=== PATIENT | female | born 1980 | race Caucasian/White ===

== ENCOUNTER 2019-06-06 19:36 | Emergency (ER) | payer MEDICARE ==
[~2019-06-06] VITALS: Ht 172.7 cm; Wt 99.3 kg
[2019-06-06 19:37] VITALS: BP 162/100
[2019-06-06] MEDS ORDERED: KETOROLAC 30 MG/1 ML IM ONE (20:00)
[2019-06-06] MEDS ORDERED: KETOROLAC 30 MG/1 ML ONE (20:20)
--- NOTE | 2019-06-06 20:36 | NUR ---
PT HERE FOR RIGHT SIDED CHEST PAIN THAT IS REPORDUCEABLE WITH PALPATION. PT REPORTS SHE IS SOB WITGH EXCERTION. PT REPORTS NO CARDIAC HX. PT CONNECTED TO MONITORS AND CALL LIGHT IN REACH. VSS.
[2019-06-06 20:39] LABS: BASOPHILS # (AUTO) 0.03 x10^3/uL (0-0.1); BASOPHILS % (AUTO) 0 % (0-1); EOSINOPHILS % (AUTO) 0 % (1-7); LYMPHOCYTES # (AUTO) 0.82 x10^3/uL (1-3.4); LYMPHOCYTES % (AUTO) 10 % (22-44); MD NO; MEAN CORPUSCULAR HEMOGLOBIN 33.8 pg (27.0-34.8); MEAN CORPUSCULAR HGB CONC 33.5 g/dL (32.4-35.8); MEAN CORPUSCULAR VOLUME 100.8 fL (80-100); MEAN PLATELET VOLUME 7.7 fL (7.4-10.4); MONOCYTES # (AUTO) 0.48 x10^3/uL (0.2-0.8); MONOCYTES % (AUTO) 6 % (2-9); NEUTROPHILS % (AUTO) 83 % (42-75); PLATELET COUNT 222 x10^3/uL (130-400); RED BLOOD COUNT 4.29 x10^6/uL (3.82-5.3); RED CELL DISTRIBUTION WIDTH 14.6 % (9.6-15.2)
[2019-06-06 20:49] LABS: ALANINE AMINOTRANSFERASE 73 U/L (12-78); ALBUMIN 3.5 g/dL (3.4-5.0); ANION GAP 9 mmol/L (5-15); CALCIUM 8.4 mg/dL (8.5-10.1); CHLORIDE 105 mmol/L (98-107); CREATININE 0.93 mg/dL (0.55-1.02)
[2019-06-06 20:53] LABS: ALKALINE PHOSPHATASE 126 U/L (45-117); BILIRUBIN,TOTAL 0.6 mg/dL (0.2-1.0); TOTAL PROTEIN 7.6 g/dL (6.4-8.2); TROPONIN I < 0.015 ng/mL (0.000-0.045)
--- NOTE | 2019-06-06 21:39 | NUR ---
Patient/Caregiver given discharge instructions and they have confirmed that they understand the instructions. Patient ambulatory with steady gait.
--- NOTE | 2019-06-06 21:40 | NUR ---
ABD US CANCELLED
== END 2019-06-06 22:04 | disposition home or self-care (01) ==
LOC: ED 21:45
DX: R07.81 Pleurodynia (principal); R94.5 Abnormal results of liver function studies; R07.89 Other chest pain; M06.9 Rheumatoid arthritis, unspecified
CPT/HCPCS: 36415; 71045; 80053; 84484; 85025; 85379; 93005; 96372; 99284; J1885

== ENCOUNTER 2020-01-20 13:38 | Emergency (ER) | payer OTHER, MEDICARE ==
[~2020-01-20] VITALS: Ht 172.7 cm; Wt 101.0 kg
--- NOTE | 2020-01-20 13:57 | NUR ---
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
[2020-01-20] MEDS ORDERED: SODIUM CHLORIDE FLUSH 10ML SYR IVF ONE (14:00)
[2020-01-20] MEDS ORDERED: SODIUM CHLORIDE 0.9% 1,000ML IVBOLUS ONE (14:30)
[2020-01-20 14:52] LABS: BASOPHILS # (AUTO) 0.03 x10^3/uL (0-0.1); BASOPHILS % (AUTO) 0 % (0-1); EOSINOPHILS # (AUTO) 0.01 x10^3/uL (0-0.4); EOSINOPHILS % (AUTO) 0 % (1-7); LYMPHOCYTES # (AUTO) 0.81 x10^3/uL (1-3.4); LYMPHOCYTES % (AUTO) 13 % (22-44); MD NO; MEAN CORPUSCULAR HEMOGLOBIN 33.6 pg (27.0-34.8); MEAN CORPUSCULAR HGB CONC 33.6 g/dL (32.4-35.8); MEAN PLATELET VOLUME 7.5 fL (7.4-10.4); MONOCYTES # (AUTO) 0.44 x10^3/uL (0.2-0.8); MONOCYTES % (AUTO) 7 % (2-9); NEUTROPHILS # (AUTO) 4.76 x10^3/uL (1.8-6.8); NEUTROPHILS % (AUTO) 79 % (42-75); PLATELET COUNT 243 x10^3/uL (130-400); RED BLOOD COUNT 4.31 x10^6/uL (3.82-5.3); RED CELL DISTRIBUTION WIDTH 13.7 % (9.6-15.2)
[2020-01-20 15:00] LABS: ALANINE AMINOTRANSFERASE 55 U/L (12-78); ANION GAP 12 mmol/L (5-15); CALCIUM 8.2 mg/dL (8.5-10.1); CHLORIDE 105 mmol/L (98-107); CREATININE 0.72 mg/dL (0.55-1.02)
[2020-01-20 15:05] LABS: ALKALINE PHOSPHATASE 123 U/L (45-117); BILIRUBIN,TOTAL 0.5 mg/dL (0.2-1.0); TOTAL PROTEIN 7.5 g/dL (6.4-8.2); TROPONIN I < 0.015 ng/mL (0.000-0.045)
--- NOTE | 2020-01-20 15:55 | NUR ---
PT ATTACHED TO MONITORS, FLUIDS INFUSING BUT SLUGGISHLY. PT UP TO RESTROOM FOR URINE SAMPLE COLLECTION, STRONG STEADY GAIT. RETURNED WITHOUT ISSUE. PT DENIES ANY FURTHER NEEDS, CALL LIGHT IN REACH.
[2020-01-20 15:58] VITALS: BP 149/83
[2020-01-20 16:33] LABS: MICROSCOPIC INDICATED
== END 2020-01-20 17:12 | disposition home or self-care (01) ==
LOC: ED 16:04
DX: R00.0 Tachycardia, unspecified (principal); E86.0 Dehydration; N30.00 Acute cystitis without hematuria; R94.31 Abnormal electrocardiogram [ECG] [EKG]; M06.9 Rheumatoid arthritis, unspecified
CPT/HCPCS: 36415; 71045; 80053; 81001; 83880; 84484; 85025; 87086; 93005; 96360; 99285; J7030

== ENCOUNTER → 2020-10-14 | Outpatient (CLI) | payer MEDICARE, BC ==
[~2020-10-14] MED LIST: REGADENOSON 0.4 MG/5 ML SYRINGE ONE
== END | disposition home or self-care (01) ==
LOC: CVU 10:47
PROVIDERS: ATTEND Internal Medicine Cardiovascular Disease
DX: I36.1 Nonrheumatic tricuspid (valve) insufficiency (principal); I10 Essential (primary) hypertension; R06.02 Shortness of breath; R60.9 Edema, unspecified
CPT/HCPCS: 78452; 93017; 93306; A9502; J2785